=== PATIENT | male | born 2000 | race Caucasian/White ===

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

== ENCOUNTER → 2024-08-16 12:08 | Outpatient (CLI) | payer OTHER, SELFPAY ==
[2024-08-16 13:57] LABS: TSH w/ Reflex to FT4 0.63 uIU/mL (0.47-4.68)
[2024-08-19 16:10] LABS: IgA 300 mg/dL (90-386); t-Transglutaminase IgA <2 U/mL (0-3)
[2024-08-19 21:36] LABS: Tissue Transglutaminase IgA 2 U/mL (0-3)
[2024-08-20 06:05] LABS: Endomysial AB IGA Negative (Negative)
== END ==
PROVIDERS: Family Medicine; PCP Family Medicine; Referring Provider Family Medicine; Visit Provider Family Medicine
DX: R21 Rash and other nonspecific skin eruption (principal); L98.9 Disorder of the skin and subcutaneous tissue, unspecified; Z83.79 Family history of other diseases of the digestive system; Z83.49 Family history of other endocrine, nutritional and metabolic diseases; Z91.018 Allergy to other foods
CPT/HCPCS: 36415; 82784; 83516; 84443; 86255